=== PATIENT | female | born 1955 | race Caucasian/White ===

== ENCOUNTER 2020-11-26 12:45 | Observation (INO) | payer OTHER ==
[~2020-11-26] VITALS: Ht 157.5 cm; Wt 72.0 kg
[~2020-11-26 12:45] MED LIST: ADVAIR DISK1; ADVAIR DISK1 IN; BUSPIRONE15 MG PO; CITALOPRAM HYDR40 MG PO; COMBIVENT IN; DILTIAZEM HCL360 MG PO; FLEXERIL PO; FLOVENT HFA220 MCG PO; LASIX 20 MG20 MG/TAB PO; LISINOPRIL20 MG PO; METHADONE10 M1 PO; MOTRIN800 MG/TAB PO; OMEPRAZOLE40 MG PO; OXYCODONE HCL30 MG PO; OXYCODONE30 MG PO; PREMARIN0.625 MG PO; PRILOSEC40 MG PO; PROAIR HFA IN; RESTORIL15 MG PO; SPIRONOLACT100 MG PO; SPIRONOLACTONE50 MG PO; ULTRAM50 MG PO; VALIUM5 MG PO
--- NOTE | 2020-11-26 12:49 | NUR ---
PT TO [facility] 9 FOR B/S TRIAGE VIA EMS STRETCHER.
[2020-11-26 15:00] LABS: HEMOGLOBIN 14.6 g/dl (12.0-16.0); IMMATURE GRANULOCYTES 0.1 % (0.0-5.0); MEAN CORPUSCULAR HGB 30.1 pG CALC (26.0-32.0); MEAN CORPUSCULAR HGB CONC 32.4 g/dL CAL (32.0-36.0); NEUT# 5.3 thou/uL (2.00-7.15); RED BLOOD COUNT 4.85 mill/uL (4.20-5.60); RED CELL DISTRI WIDTH 14.6 % (11.5-15.5)
[2020-11-26 15:02] LABS: MEAN CELL VOLUME 92.8 fL CALC (80.0-100.0)
[2020-11-26 15:08] LABS: ALBUMIN 3.3 g/dL (3.2-5.0); ALKALINE PHOSPHATASE 120 u/l (38-126); ANION GAP 6 (6-22 (CALC)); BUN 12 mg/dL (8-23); BUN/CREATININE RATIO 17 (12-20 (CALC)); CARBON DIOXIDE 33 mmol/l (22-30); CHLORIDE 101 mmol/l (95-108); CREATININE 0.7 mg/dL (0.5-1.0); GFR > 60 ML/MIN (>=60 (CALC)); GFR FOR AFR.AMER. > 60 ML/MIN (>=60 (CALC)); LIPASE 63 u/l (23-300); POTASSIUM 3.6 mmol/l (3.5-5.1); SGOT/AST 86 u/l (9-36); SODIUM 136 mmol/l (137-146); TOTAL PROTEIN 7.4 g/dL (6.3-8.2)
[2020-11-26 15:14] LABS: BILIRUBIN, TOTAL 0.8 mg/dL (0.0-1.4)
[2020-11-26 18:51] VITALS: BP 146/72
--- NOTE | 2020-11-26 18:55 | NUR ---
PT REPORT IMPROVEMENT AFTER MEDICATIONS PT STATES "i AM NOT sob i WAS" PT PAIN DECREASED TO 6/10
--- NOTE | 2020-11-26 21:09 | NUR ---
PT VERBALIZES UNDERSTANDING OF ADMISSION TO HOSPITAL TO BE POSSIBLY HOUSED IN ER. DENTENTION OFFICER AT BEDSIDE.
[2020-11-26 23:22] VITALS: BP 169/91
[2020-11-26 23:52] VITALS: BP 153/73
[2020-11-27 01:22] VITALS: BP 159/74
--- NOTE | 2020-11-27 02:41 | NUR ---
CALL PLACED TO PHYSICIAN FOR PAIN MEDICATION AND NAUSEA MEDICATION. PT REFUSED TYLENOL. NEW ORDERS RECEIVED. AWAITING MEDS TO BE AVAILABLE ON MAY.
--- NOTE | 2020-11-27 04:00 | NUR ---
CALL PLACED TO PHARMACY TO FOLLOW UP ON ORDERED MEDICATION. MED NOT YET AVAILABLE ON PT MAY.
[2020-11-27 05:22] VITALS: BP 142/70
--- NOTE | 2020-11-27 10:50 | NUR ---
PATIENT ALERT, VERBAL WITH INT CONFUSION, ABLE TO MAKE NEEDS KNOWN. ABLE TO TOLERATE ABLE TO TOLERATE MEDS WELL WHOLE. CONT ON PO ABT THERAPY WITH NO SIDE EFFECTS NOTED--AFEBRILE. NO FURTHER COMPLAINTS OF CHEST PAIN NOTED. PIV SITE PATENT TO LEFT AC--FLUSHES WELL--SITE UNREMARKABLE. 1-ASSIST TO BSC AD AMARA THIS SHIFT. DENIES PAIN. MEDICATED WITH PRN TYLENOL AT THIS TIME FOR COMPLAINTS OF GEN DISC. WILL CONT TO MONITOR FOR ANY FURTHER CHANGES.
--- NOTE | 2020-11-27 12:42 | NUR ---
Discharge instructions given. Patient verbalizes understanding of same. Dis[facility] in good condition [facility]. All belongings sent with pt.
== END 2020-11-27 12:30 | DRG 192 ==
LOC: ED 12:45 → ED-I 18:34 → ED 19:16 → ED-I 19:17
PROVIDERS: Emergency Medicine; ADMIT Hospitalist; ATTEND Hospitalist
DX: J43.9 Emphysema, unspecified (principal); R07.9 Chest pain, unspecified; F41.9 Anxiety disorder, unspecified; I11.0 Hypertensive heart disease with heart failure; I50.9 Heart failure, unspecified; G89.4 Chronic pain syndrome; B19.20 Unspecified viral hepatitis C without hepatic coma; K74.60 Unspecified cirrhosis of liver; F17.210 Nicotine dependence, cigarettes, uncomplicated; K21.9 Gastro-esophageal reflux disease without esophagitis; K44.9 Diaphragmatic hernia without obstruction or gangrene; Z20.822 Contact with and (suspected) exposure to COVID-19
CPT/HCPCS: J1650; J2060; J3475